=== PATIENT | male | born 1945 | race Hispanic/Latino ===

== ENCOUNTER → 2018-05-13 | Outpatient (CLI) | payer MEDICARE ==
[~2018-05-13] MED LIST: IOPAMIDOL 370 MG/ML 200 ML INFUS..BTL INJ ONE; SODIUM CHLORIDE 0.9% 250ML 250 ML ONE
[2018-05-13 12:49] LABS: BLOOD UREA NITROGEN 16 mg/dL (7-26); BUN/CREATININE RATIO 18 (6-25); EST GLOMERULAR FILTRATION RATE > 60 ML/MIN (60-)
--- NOTE | 2018-05-13 15:19 | Diagnostic Imaging Report ---
EXAM: CT Abdomen and Pelvis WITHOUT and WITH contrast INDICATION: Microscopic hematuria COMPARISON: None. TECHNIQUE: Abdomen and pelvis were scanned utilizing a multidetector helical scanner from the lung base to the pubic symphysis before and after administration of IV contrast. Coronal and sagittal reformations were obtained. CT urogram protocol was performed. Post contrast scan was performed during delayed phase. 3-D volume-rendering reformations were obtained on a separate workstation under the direct supervision of a Radiologist. Dose modulation, iterative reconstruction, and/or weight based adjustment of the mA/kV was utilized to reduce the radiation dose to as low as reasonably achievable. IV CONTRAST: 150 mL of Isovue-370 ORAL CONTRAST: None RADIATION DOSE: Total DLP: 1002.01 mGy*cm Estimated effective dose: (DLP x 0.015 x size factor) mSv COMPLICATIONS: None FINDINGS: LINES and TUBES: None. LOWER THORAX: Lung bases clear with mild dependent atelectasis. Extensive coronary artery calcification. HEPATOBILIARY: 5 mm hypodensity in the dome of the liver, not fully characterized, likely small cyst. No other focal hepatic lesions. No biliary ductal dilation. GALLBLADDER: There are calcifications in the nondependent portion of the gallbladder near the gallbladder neck, possible adenomyomatosis, adherent gallstones or gallbladder wall calcification. No wall thickening. SPLEEN: No splenomegaly. PANCREAS: No focal masses or ductal dilatation. ADRENALS: No adrenal nodules KIDNEYS/URETERS: Kidneys enhance symmetrically. No hydronephrosis. Multiple subcentimeter cortical hypodensities bilaterally, largest 0.7 cm in the anterior midportion left kidney, too small to fully characterize but likely small cysts. No enhancing solid masses. No stones. Bilateral opacified ureters are not dilated. GI TRACT: No abnormal distention, wall thickening, or evidence of bowel obstruction. Sigmoid diverticulosis with no CT evidence for acute diverticulitis. Appendix is normal. PELVIC ORGANS/BLADDER: Urinary bladder unremarkable. Prostate measures 4.6 cm diameter with multiple calcifications. No discrete abnormal mass or fluid collection in the pelvis. LYMPH NODES: No dominant lymph node mass is seen in the abdomen, retroperitoneum or pelvis. VESSELS: The aortoiliac vessels are atherosclerotic with extensive calcified plaque. No abdominal aortic aneurysm. IVC unremarkable. Portal venous system is patent. PERITONEUM / RETROPERITONEUM: No free air or fluid. BONES: No acute or suspicious bony lesions. SOFT TISSUES: Superficial surrounding soft tissue shows small bilateral inguinal hernias containing fat. There is a small umbilical hernia containing fat. IMPRESSION: 1. No urinary tract calculus or hydronephrosis. Small bilateral renal cysts. 2. Calcifications in the nondependent portion of the gallbladder may represent adenomyomatosis, adherent gallstones or gallbladder wall calcification. This may be further characterized with gallbladder ultrasound. 3. Sigmoid diverticulosis with no diverticulitis. 4. Extensive aortoiliac atherosclerosis with no aneurysm. Extensive coronary artery calcifications. Signed by: Dr. Vito Harris M.D. on 05/13/2018 3:16 PM
--- NOTE | 2018-05-14 09:13 | Diagnostic Imaging Report ---
Bone Scan, delayed phase INDICATION: Prostate cancer; diagnosis in 2013. Elevated PSA. COMPARISON: CT abdo/pelvis 05/13/2018 REPORT: Approximately 3 hours following intravenous administration of 25 mCi of Tc-99m MDP, delayed total body images in the anterior and posterior projections and selected spot images were obtained. Foci of mildly increased tracer are seen in the upper cervical spine, consistent with degenerative changes. Degenerative changes are also seen along the right side of the mid to lower thoracic spine. Focal markedly increased tracer is seen at the left sternoclavicular junction. Otherwise, distribution of tracer activity is unremarkable throughout the skeletal system. No abnormal accumulation of tracer is seen in the soft tissues or urinary tract. IMPRESSION: No definite scan evidence of metastatic bone disease. The acute osteoblastic process at the left sternoclavicular junction is likely degenerative although it is quite intense. Comparison with chest CT may be warranted. Signed by: Dr. Ronda Serna M.D. on 05/14/2018 9:10 AM
== END ==
LOC: NM 11:45
PROVIDERS: ATTEND Urology
DX: C61 Malignant neoplasm of prostate (principal); R31.21 Asymptomatic microscopic hematuria
CPT/HCPCS: 36415; 74178; 78306; 82565; 84520; A9503; J7050; Q9967

== ENCOUNTER → 2020-04-18 | Outpatient (CLI) | payer MEDICARE | LOC: MRI 13:45 | PROVIDERS: ATTEND Orthopaedic Surgery Orthopaedic Surgery of the Spine | DX: M25.521 Pain in right elbow (principal) ==